=== PATIENT | female | born 1985 | race Caucasian/White ===

== ENCOUNTER 2020-06-21 20:39 | Emergency (ER) | payer MEDICAID ==
[~2020-06-21] VITALS: Ht 167.6 cm; Wt 104.3 kg
[2020-06-21 20:55] VITALS: Ht 167.6 cm; Wt 104.3 kg
[2020-06-21 21:33] LABS: BASOPHIL % 0.7 % (0-2); PLATELET COUNT 305 x10^3mcL (130-400); RED CELL DISTRIBUTION WIDTH 12.9 % (11.5-14.5)
[2020-06-21 21:42] LABS: CALCIUM 9.5 mg/dL (8.5-10.1); CARBON DIOXIDE 16.5 mmol/L (21-32); CREATININE SERUM 1.2 mg/dL (0.6-1.0); POTASSIUM SERUM 3.6 mmol/L (3.5-5.1)
[2020-06-21 21:47] LABS: ALBUMIN 3.9 g/dL (3.4-5.0); BILIRUBIN TOTAL 0.48 mg/dL (0.20-1.00); TOTAL PROTEIN, SERUM 7.9 g/dL (6.4-8.2)
[2020-06-21 23:16] LABS: AMPHETAMINE QUAL UR NONE DETECTED (See below)
[2020-06-22 03:00] VITALS: BP 113/76
== END 2020-06-22 03:00 | disposition short-term general hospital (02) ==
LOC: ED 20:39
PROVIDERS: Emergency Medicine
DX: G40.901 Epilepsy, unspecified, not intractable, with status epilepticus (principal); Z20.828 Contact with and (suspected) exposure to other viral communicable diseases; Z88.8 Allergy status to other drugs, medicaments and biological substances
CPT/HCPCS: 82962; G0480; J1953; J2060; J7030